=== PATIENT | male | born 1990 ===

== ENCOUNTER 2019-12-29 20:29 | Emergency (ER) | payer SELFPAY ==
[2019-12-29 21:21] LABS: Absolute Lymphocytes (CBC) 2.3 K/uL (0.7-4.9); Basophils % 0.4 % (0-1.3); Hematocrit 42.3 % (39.6-49.0); Lymphocytes % 28.5 % (15.3-44.8); MPV 8.1 fL (7.6-11.3)
[2019-12-29 21:30] LABS: Urine Blood NEGATIVE (NEG); Urine Glucose NEGATIVE (NEG); Urine Protein NEGATIVE (NEG); Urine pH 8.5 (5.0-7.0)
[2019-12-29 21:42] LABS: Barbiturates NEGATIVE (NEGATIVE); Benzodiazepines NEGATIVE (NEGATIVE); Cocaine NEGATIVE (NEGATIVE); METHAMPHETAM NEGATIVE (NEGATIVE); Methadone NEGATIVE (NEGATIVE); Opiates NEGATIVE (NEGATIVE); Phencyclidine NEGATIVE (NEGATIVE); THC Cannibis NEGATIVE (NEGATIVE)
[2019-12-29 21:44] LABS: ALT/SGPT 53 U/L (12-78); AST/SGOT 22 U/L (15-37); Albumin 4.2 g/dL (3.4-5.0); Alkaline Phosphatase 58 U/L (45-117); BUN Blood Urea Nitrogen 13 mg/dL (7-18); Bicarbonate 24 mmol/L (21-32); Bilirubin Direct 0.2 mg/dL (0-0.2); Bilirubin Total 0.6 mg/dL (0.2-1.0); Glucose Level 111 mg/dL (74-106); Lipase 73 U/L (73-393); Magnesium 2.1 mg/dL (1.8-2.4); Potassium 3.6 mmol/L (3.5-5.1); Protein, Total 7.4 g/dL (6.4-8.2); Sodium Level 141 mmol/L (136-145); Troponin (Emerg Dept Use Only) < 0.02 ng/mL (0.0-0.045)
--- NOTE | 2019-12-29 23:42 | EDPHYS ---
Physician Documentation [facility] Name: Mesfin Mckeon Age: 29 yrs Sex: Male : 1990 Arrival Date: 12/29/2019 Time: 20:31 Bed 5 Private MD: ED Physician Colt Yates HPI: 12/28 21:28 This 29 yrs old Male presents to ER via Ambulatory with complaints of Numbness, mh7 Abdominal Pain, Chest Pressure. 21:28 The patient or guardian reports chest pain that is located primarily in the epigastric mh7 area. 21:30 The patient or guardian reports chest pain that is located primarily in the anterior mh7 chest wall, bilaterally. The pain does not radiate. 21:32 Associated signs and symptoms: Pertinent positives: abdominal pain, palpitations, mh7 numbness/tingling of hands, Pertinent negatives: cough, diaphoresis, dizziness, headache, lower extremity pain, lower extremity swelling, lightheadedness, nausea, near syncope, recent travel, shortness of breath, syncope, vomiting. The chest pain is described as a pressure. Duration: The patient or guardian reports multiple episodes, that are intermittent, that wax and wane, with no pattern. Modifying factors: The symptoms are alleviated by nothing. the symptoms are aggravated by emotionally stressful situations. Severity of pain: At its worst the pain was moderate today, in the emergency department the pain has improved markedly. The patient has experienced similar episodes in the past, multiple times. Patient reports a history of anxiety as a child. He states similar symptoms reoccurred starting about 6 weeks ago intermittently. He reports having two episodes today. Symptoms include chest pressure, numbness/tingling of hands, upper abdominal cramping.. Historical: - Allergies: 20:49 Morphine; jd3 - Home Meds: 20:49 None [Active]; jd3 - PMHx: 20:49 Anxiety; PVC's; ADD/ADHD; jd3 - PSHx: 20:49 JOSÉ MIGUEL hand; left ankle; jd3 - Immunization history:: Adult Immunizations up to date. - Social history:: Smoking status: Patient/guardian denies using tobacco, Stopped _ months ago 1. ROS: 21:32 Constitutional: Negative for fever, chills, and weight loss, Eyes: Negative for injury, mh7 pain, redness, and discharge, ENT: Negative for injury, pain, and discharge, Neck: Negative for injury, pain, and swelling, Respiratory: Negative for shortness of breath, cough, wheezing, and pleuritic chest pain, Back: Negative for injury and pain, : Negative for injury, bleeding, discharge, and swelling, Skin: Negative for injury, rash, and discoloration, Allergy/Immunology: Negative for hives, rash, and allergies, Endocrine: Negative for neck swelling, polydipsia, polyuria, polyphagia, and marked weight changes, Hematologic/Lymphatic: Negative for swollen nodes, abnormal bleeding, and unusual bruising. Exam: 21:32 Head/Face: Normocephalic, atraumatic. Eyes: Pupils equal round and reactive to light, mh7 extra-ocular motions intact. Lids and lashes normal. Conjunctiva and sclera are non-icteric and not injected. Cornea within normal limits. Periorbital areas with no swelling, redness, or edema. ENT: Nares patent. No nasal discharge, no septal abnormalities noted. Tympanic membranes are normal and external auditory canals are clear. Oropharynx with no redness, swelling, or masses, exudates, or evidence of obstruction, uvula midline. Mucous membranes moist. Neck: Trachea midline, no thyromegaly or masses palpated, and no cervical lymphadenopathy. Supple, full range of motion without nuchal rigidity, or vertebral point tenderness. No Meningismus. Chest/axilla: Normal chest wall appearance and motion. Nontender with no deformity. No lesions are appreciated. Cardiovascular: Regular rate and rhythm with a normal S1 and S2. No gallops, murmurs, or rubs. Normal PMI, no JVD. No pulse deficits. Respiratory: Lungs have equal breath sounds bilaterally, clear to auscultation and percussion. No rales, rhonchi or wheezes noted. No increased work of breathing, no retractions or nasal flaring. Abdomen/GI: Soft, non-tender, with normal bowel sounds. No distension or tympany. No guarding or rebound. No evidence of tenderness throughout. Back: No spinal tenderness. No costovertebral tenderness. Full range of motion. Skin: Warm, dry with normal turgor. Normal color with no rashes, no lesions, and no evidence of cellulitis. MS/ Extremity: Pulses equal, no cyanosis. Neurovascular intact. Full, normal range of motion. Neuro: Awake and alert, GCS 15, oriented to person, place, time, and situation. Cranial nerves II-XII grossly intact. Motor strength 5/5 in all extremities. Sensory grossly intact. Cerebellar exam normal. Normal gait. 21:32 Constitutional: The patient appears in no acute distress, alert, awake, comfortable, anxious. 21:32 Psych: Behavior/mood is pleasant, cooperative, anxious, Affect is calm, Oriented to person, place, time, Patient has no thoughts/intents to harm self or others. Judgement / Insight is normal. Memory is normal. Delusions/hallucinations are not present. Vital Signs: 20:46 BP 113 / 70; Pulse 55; Resp 19 S; Temp 98.6(O); Pulse Ox 100% on R/A; Weight 79.38 kg jd3 (R); Height 6 ft. 1 in. (185.42 cm) (R); Pain 5/10; 21:55 BP 110 / 75; Pulse 52; Resp 17; Pulse Ox 98% ; rr5 22:30 BP 105 / 63; Pulse 55; Resp 19; Pulse Ox 100% ; rr5 23:25 BP 101 / 69; Pulse 53; Resp 14; Pulse Ox 98% ; rr5 23:52 BP 107 / 70; Pulse 55; Resp 16; Pulse Ox 99% ; rr5 20:46 Body Mass Index 23.09 (79.38 kg, 185.42 cm) jd3 MDM: 20:54 Patient medically screened. [facility] 23:38 Differential diagnosis: acute myocardial infarction, anxiety, coronary artery disease [facility] chest wall pain, costochondritis, peptic ulcer disease, pneumonia, pneumothorax. HEART Score: History: Slightly Suspicious (0), ECG: Normal (0), Age: < or = 45 years (0), Risk Factors: No Risk Factors Known (0), Troponin: < or = 1 x Normal Limit (0), Total Score = 0. Data reviewed: vital signs, nurses notes, lab test result(s), cardiac enzymes, CBC, electrolytes, urinalysis, urine drug screen, EKG, radiologic studies, plain films. Data interpreted: ekg monitor tech: rate is 98 beats/min, rhythm is normal sinus rhythm, regular, Pulse oximetry: on room air is 98 %. Interpretation: normal. Counseling: I had a detailed discussion with the patient and/or guardian regarding: the historical points, exam findings, and any diagnostic results supporting the discharge/admit diagnosis, lab results, radiology results, the need for outpatient follow up, to return to the emergency department if symptoms worsen or persist or if there are any questions or concerns that arise at home. 12/28 20:57 Order name: Basic Metabolic Panel; Complete Time: 22:04 7 12/28 20:57 Order name: CBC with Diff; Complete Time: 22:04 [facility] 12/28 20:57 Order name: LFT's; Complete Time: 22:04 [facility] 12/28 20:57 Order name: Magnesium; Complete Time: 22:04 7 12/28 20:57 Order name: Troponin (emerg Dept Use Only); Complete Time: 22:04 [facility] 12/28 20:57 Order name: Lipase; Complete Time: 22:04 7 12/28 20:57 Order name: XRAY Chest (1 view) [facility] 12/28 20:57 Order name: EKG; Complete Time: 20:57 7 12/28 20:57 Order name: Cardiac monitoring; Complete Time: 20:58 7 12/28 20:57 Order name: EKG - Nurse/Tech; Complete Time: 21:12 7 12/28 20:57 Order name: IV Saline Lock; Complete Time: 21:12 7 12/28 20:57 Order name: Labs collected and sent; Complete Time: 21:12 7 12/28 20:57 Order name: UDS; Complete Time: 22:04 7 12/28 21:11 Order name: Urine Dipstick--Ancillary (enter results); Complete Time: 22:04 tt3 12/28 20:57 Order name: O2 Per Protocol; Complete Time: 20:58 7 12/28 20:57 Order name: O2 Sat Monitoring; Complete Time: 20:58 7 Administered Medications: No medications were administered Disposition: 12/29 07:22 Co-signature as Attending Physician, Colt Yates MD. [facility] Disposition: 12/29/19 23:42 Discharged to Home. Impression: Chest pain, unspecified, Anxiety. - Condition is Stable. - Discharge Instructions: Nonspecific Chest Pain, [id number], Generalized Anxiety Disorder. - Medication Reconciliation Form, Thank You Letter, Antibiotic Education, Prescription Opioid Use form. - Follow up: Private Physician; When: 2 - 3 days; Reason: Worsening of condition, Recheck today's complaints, Continuance of care, Re-evaluation by your physician. - Problem is an ongoing problem. - Symptoms have improved. Signatures: Dispatcher [employer] EDJerry Mccoy RN RN jd3 Rogelio Ramires RN RN rr5 Colt Yates MD MD mh7 Corrections: (The following items were deleted from the chart) 12/28 23:55 23:42 12/29/2019 23:42 Discharged to Home. Impression: Chest pain, unspecified; rr5 Anxiety. Condition is Stable. Forms are Medication Reconciliation Form, Thank You Letter, Antibiotic Education, Prescription Opioid Use. Follow up: Private Physician; When: 2 - 3 days; Reason: Worsening of condition, Recheck today's complaints, Continuance of care, Re-evaluation by your physician. Problem is an ongoing problem. Symptoms have improved. mh7
--- NOTE | 2019-12-29 23:42 | ER ---
Nurse's Notes [facility] Name: Mesfin Mckeon Age: 29 yrs Sex: Male : 1990 Arrival Date: 12/29/2019 Time: 20:31 Bed 5 Private MD: Diagnosis: Chest pain, unspecified;Anxiety Presentation: 12/28 20:44 Chief complaint: Patient states: "I have had anxiety in the past and it might be that, jd3 but this is twice in one day now. I am having numbness in both arms, chest pressure and a knot in my throat that makes it hard to breath. it happened earlier and they even called the ambulance, but I got better before it arrived.". Coronavirus screen: At this time, the client does not indicate any symptoms associated with coronavirus-19. Ebola Screen: Patient negative for fever greater than or equal to 101.5 degrees Fahrenheit, and additional compatible Ebola Virus Disease symptoms. Initial Sepsis Screen: Does the patient meet any 2 criteria? No. Patient's initial sepsis screen is negative. Does the patient have a suspected source of infection? No. Patient's initial sepsis screen is negative. Risk Assessment: Do you want to hurt yourself or someone else? Patient reports no desire to harm self or others. Onset of symptoms was December 29, 2019. 20:44 Method Of Arrival: Ambulatory jd3 20:44 Acuity: ALFRED 3 jd3 Historical: - Allergies: 20:49 Morphine; jd3 - Home Meds: 20:49 None [Active]; jd3 - PMHx: 20:49 Anxiety; PVC's; ADD/ADHD; jd3 - PSHx: 20:49 JOSÉ MIGUEL hand; left ankle; jd3 - Immunization history:: Adult Immunizations up to date. - Social history:: Smoking status: Patient/guardian denies using tobacco, Stopped _ months ago 1. Screenin:00 Abuse screen: Denies threats or abuse. Denies injuries from another. Nutritional rr5 screening: No deficits noted. Tuberculosis screening: No symptoms or risk factors identified. Fall Risk IV access (20 points). Total Hughes Fall Scale indicates No Risk (0-24 pts). Assessment: 21:00 General: Appears in no apparent distress. uncomfortable, Behavior is calm, cooperative, rr5 anxious. 21:00 Pain: Complains of pain in epigastric area Pain radiates to chest Pain currently is 6 rr5 out of 10 on a pain scale. Quality of pain is described as aching, Pain began gradually, Is intermittent. Neuro: Level of Consciousness is awake, alert, obeys commands, Oriented to person, place, time, situation. Cardiovascular: Reports chest pain, Capillary refill < 3 seconds Patient's skin is warm and dry. Respiratory: Airway is patent Respiratory effort is even, unlabored, Respiratory pattern is regular, symmetrical. GI: Abdomen is round non-distended, Abd is soft and non tender X 4 quads. Reports upper abdominal pain. : No signs and/or symptoms were reported regarding the genitourinary system. EENT: No signs and/or symptoms were reported regarding the EENT system. Derm: Skin is intact, is healthy with good turgor, Skin temperature is warm. Musculoskeletal: Circulation, motion, and sensation intact. Capillary refill < 3 seconds. 22:10 Reassessment: Patient appears in no apparent distress at this time. Patient is alert, rr5 oriented x 3, equal unlabored respirations, skin warm/dry/pink. awaiting for results. 23:25 Reassessment: Patient appears in no apparent distress at this time. Patient is alert, rr5 oriented x 3, equal unlabored respirations, skin warm/dry/pink. for review by ED provider. 23:53 Reassessment: Patient appears in no apparent distress at this time. Patient is alert, rr5 oriented x 3, equal unlabored respirations, skin warm/dry/pink. discharge instruction given and explained without complaints made. Vital Signs: 20:46 BP 113 / 70; Pulse 55; Resp 19 S; Temp 98.6(O); Pulse Ox 100% on R/A; Weight 79.38 kg jd3 (R); Height 6 ft. 1 in. (185.42 cm) (R); Pain 5/10; 21:55 BP 110 / 75; Pulse 52; Resp 17; Pulse Ox 98% ; rr5 22:30 BP 105 / 63; Pulse 55; Resp 19; Pulse Ox 100% ; rr5 23:25 BP 101 / 69; Pulse 53; Resp 14; Pulse Ox 98% ; rr5 23:52 BP 107 / 70; Pulse 55; Resp 16; Pulse Ox 99% ; rr5 20:46 Body Mass Index 23.09 (79.38 kg, 185.42 cm) jd3 ED Course: 20:31 Patient arrived in ED. bp1 20:42 Colt Yates MD is Attending Physician. mh7 20:46 Triage completed. jd3 20:47 Arm band placed on. jd3 20:57 Rogelio Ramires, RN is Primary Nurse. rr5 21:00 Patient has correct armband on for positive identification. Bed in low position. Call rr5 light in reach. monitor car operator on. Pulse ox on. NIBP on. 21:05 EKG done, by ED staff, reviewed by Colt Yates MD. rr5 21:12 Inserted saline lock: 20 gauge in right forearm, using aseptic technique. Blood rr5 collected. 22:43 XRAY Chest (1 view) In Process Unspecified. EDMS 23:53 No provider procedures requiring assistance completed. IV discontinued, intact, rr5 bleeding controlled, No redness/swelling at site. Pressure dressing applied. Administered Medications: No medications were administered Outcome: 23:42 Discharge ordered by . 7 23:53 Discharged to home ambulatory. rr5 23:53 Condition: stable 23:53 Discharge instructions given to patient, Instructed on discharge instructions, follow up and referral plans. Demonstrated understanding of instructions, follow-up care. 23:55 Patient left the ED. rr5 Signatures: Dispatcher [employer] EDMS Jerry Wiseman RN RN jd3 Rogelio Ramires, RN RN rr5 Gisela Ag bp1 Colt Yates MD MD [facility]
--- NOTE | 2019-12-30 13:36 | RAD REPORT ---
EXAM DESCRIPTION: RAD - Chest Single View - 12/29/2019 10:43 pm CLINICAL HISTORY: 29 years Male CHEST PAIN TECHNIQUE: One view of the chest. COMPARISON: No prior exams provided for comparison. FINDINGS: The lungs are clear without focal consolidation, effusion, or pneumothorax. The cardiomedi astinal silhouette and central pulmonary vasculature are normal. No acute osseous abnormalities. IMPRESSION: No acute cardiopulmonary abnormalities. Electronically signed by: Nahomy Mendiola MD 12/29/2019 10:53 PM CDT Due to temporary technical issues with the PACS/Fluency reporting system, reports are being signed by the in house radiologist without review as a courtesy to ensure prompt reporting. The interpreting r adiologist is fully responsible for the content of the report.
== END 2019-12-29 23:55 | disposition home or self-care (01) ==
LOC: ER 20:29
DX: F41.9 Anxiety disorder, unspecified (principal); Z88.5 Allergy status to narcotic agent
CPT/HCPCS: 36415; 71045; 80048; 80076; 80307; 81003; 83690; 83735; 84484; 85025; 93005; 99284